=== PATIENT | male | born 1950 | race Caucasian/White ===

== ENCOUNTER 2017-03-11 07:32 | Inpatient (IN) | payer OTHER, MEDICARE ==
--- NOTE | 2017-03-05 08:53 | HP ---
DATE OF ADMISSION: 03/11/2017 DATE OF DICTATION: 03/04/2017 DATE OF SURGERY: 03/11/2017 REASON FOR ADMISSION: Chronic incarcerated ventral hernia. BRIEF HISTORY: This is a 66-year-old gentleman whose history dates back several months ago when he first developed pain in the region of his upper abdomen. The pain subsequently resolved spontaneously, and he was fine up until a week ago when he had a similar bout of pain. Both events were associated with a mass in his upper abdomen above the umbilicus. The mass was firm and hard. The second event was associated with nausea but no vomiting. Patient now has been seen by his primary care physician, Dr. Singh, and noted to have a chronically incarcerated hernia. Patient denies nausea, vomiting at this time. No change in bowel habits or bowel movements. PAST MEDICAL HISTORY: Patient denies coronary disease, hypertension, and diabetes. Patient has a history of arthritic changes and gout. PAST SURGICAL HISTORY: None. MEDICATIONS: Allopurinol, takes a pill for blood pressure, and something for an enlarged prostate. ALLERGIES: He has no known drug allergies. SOCIAL HISTORY: Patient does not smoke or drink. PHYSICAL EXAMINATION: Abdomen: Soft, nontender, nondistended. He has a midline diastasis from xiphoid to umbilicus. He has a hernia noted in the midline that is not reducible, and the hernia in the midline defects are not appreciated due to its chronically incarcerated nature. IMPRESSION/PLAN: Chronically incarcerated ventral hernia. This is a 66-year-old gentleman. He has had 2 bouts of what sounds like acute incarceration of his chronically incarcerated ventral hernia, and, therefore, I would recommend a repair at this time. We have discussed the pros and cons of an open versus laparoscopic approach versus robotic approach. At this time, I think he is best approached in an open fashion with mesh. At the time of surgery, depending on the defect size and the amount of frayed tissue, he may possibly require a component separation as well to allow placement of this large piece of mesh in the retrorectus space. The indications, alternatives, and complications of the procedure are discussed. All questions answered. I will plan to obtain written consent the day of surgery. Dale GRECO [id number] cc: Roberto Carlos Singh MD
[2017-03-08 19:16] VITALS: BMI 29.8
[2017-03-11] MEDS ORDERED: ceFAZolin SODIUM 1 GM VIAL ONE ×2 (07:55→09:23)
[2017-03-11] MEDS ORDERED: PROPOFOL 20 ML ONE (08:15)
[2017-03-11] MEDS ORDERED: LIDOCAINE HCL 2% 100 MG/5 ML DISP.SYRIN ONE (08:15)
[2017-03-11] MEDS ORDERED: SUCCINYLCHOLINE CHLORIDE 200 MG/10 ML VIAL ONE (08:15)
[2017-03-11] MEDS ORDERED: fentaNYL CITRATE 250 MCG/5 ML VIAL ONE (08:15)
[2017-03-11] MEDS ORDERED: DEXAMETHASONE SOD PHOSPHATE 4 MG/1 ML VIAL ONE ×2 (08:15→10:33)
[2017-03-11] MEDS ORDERED: ROCURONIUM BROMIDE 50 MG/5 ML VIAL ONE ×2 (08:16→09:35)
[2017-03-11] MEDS ORDERED: MIDAZOLAM HCL 2 MG/2 ML SINGLE DOSE VIAL ONE (08:16)
[2017-03-11] MEDS ORDERED: ceFAZolin SODIUM 1 GM VIAL IVPB ONE ×2 (08:20→09:20)
[2017-03-11] MEDS ORDERED: DEXAMETHASONE SOD PHOSPHATE 4 MG/1 ML VIAL IVPUSH ONE (10:33)
[2017-03-11] MEDS ORDERED: BUPIVACAINE HCL/PF 0.5% (5MG/ML) 10 ML VIAL IJ ONE (10:33)
[2017-03-11] MEDS ORDERED: NEOSTIGMINE METHYLSULFATE 0.5 MG/ML - 10 ML MDV ONE (10:35)
[2017-03-11] MEDS ORDERED: GLYCOPYRROLATE 0.2 MG/1 ML VIAL ONE (10:35)
[2017-03-11] MEDS ORDERED: ACETAMINOPHEN 325 MG TABLET (FP) PO PRN (10:50)
[2017-03-11] MEDS ORDERED: ONDANSETRON 4 MG/2 ML VIAL IVPUSH PRN (10:50)
[2017-03-11] MEDS ORDERED: oxyCODONE HCL 5 MG TABLET PO PRN (10:50)
[2017-03-11] MEDS ORDERED: morphine CARPU-JECT 4 MG/1 ML DISP.SYRIN IVPB PRN (10:50)
[2017-03-11] MEDS ORDERED: IBUPROFEN 800 MG/8 ML IJ IVPB PRN (10:54)
[2017-03-11] MEDS ORDERED: D5-1/2NS+20 MEQ KCL - 20 MEQ/1,000 ML INFUS.BAG IV SCH (11:00)
[2017-03-11] MEDS ORDERED: LACTATED RINGERS SOLUTION 1,000 ML IV SCH (13:30)
--- NOTE | 2017-03-11 13:46 | OP ---
DATE OF OPERATION: 03/11/2017 PREOPERATIVE DIAGNOSIS: A chronically incarcerated complex ventral hernia. POSTOPERATIVE DIAGNOSIS: A chronically incarcerated complex ventral hernia. PROCEDURE: Open repair of chronically incarcerated ventral hernia with mesh, bilateral component separation, rectus sheath and transversus abdominis block. SURGEON: Wilbert Ortiz MD INSPECTOR ELEVATORS: Dayo Peterson DO ANESTHESIA: Roscoe Snow MD (general). ESTIMATED BLOOD LOSS: Minimal. SPECIMEN: None. INDICATIONS/PROCEDURE: This is a 66-year-old gentleman with a known chronically incarcerated ventral hernia. He is now having more discomfort in the area and with 2 symptomatic bouts that landed him in the hospital. He now wishes to have this repaired. Patient was identified and appropriately positioned on the operating room table. After placement of general anesthesia, the abdomen was prepped and draped in the usual sterile fashion with ChloraPrep. A midline incision was made deep in the subcutaneous tissue. The hernia was identified, dissected free from the subcutaneous tissue down to the level of the fascia. The fascia was then circumferentially scribed. The fascia around the defect was markedly frayed for approximately 2 cm in all directions. Given the size of the defect and bad tissue, this gentleman clearly had over a 30 sq cm area of bad tissue that could not be repaired primarily or with mesh without a component separation. The sac opened through the midline. The rectus sheath on the patients right identified, divided, and the posterior rectus space identified and entered, and the blunt dissection was performed going out laterally to the patients right side. The perforating vessels were identified. At this point, the transversus was from the junction of the oblique and rectus sharply. This was done approximately 4-5 inches above and below the actual defect. The myofascial separation was done sharply throughout this length and allowed the transversus to be mobilized medially. Once this was accomplished on the patients right side, a similar approach on the left side was then used. The posterior rectus sheath on the left side was identified, scored, and this space was insufflated and developed laterally to the junction of the perforating vessels, just medial to the perforating vessels. The fascia at the transversus was divided sharply and from rectus as well as the obliques. The myofascial separation continued 4-5 inches above and below the defect. The operative field was now examined, noted to be hemostatic. The transversus and peritoneum were then reapproximated in the midline with a running locking 3-0 Vicryl suture. This space was then subsequently irrigated. The retrorectus space was hemostatic. A large 20 x 16 JAEL Bio was used for the operative repair along with a 15 x 15 piece of ProGrip. The two pieces of mesh were sewn together. The ProGrip was placed on the rectus side to help anchor the JAEL Bio. The mesh was then placed into the retrorectus space, fanned out laterally in all directions to cover the defect, and the mesh itself was anchored with interrupted AbsorbaTack sutures. The subcutaneous space and mesh were then subsequently irrigated and noted to be hemostatic. A transversus abdominis block was then given approximately 10 mL on both sides containing 0.25% Marcaine in 4 mg of Decadron. That same solution was then used and injected into the rectus sheath in a similar fashion on both sides for the rectus sheath block. The midline fascia was now reapproximated with 0 PDS suture with the sutures placed at a 4-to-1 ratio. The subcutaneous space was irrigated, and the midline closed with silvia. The mesh used was two pieces, one JAEL Bio 20 x 16, ProGrip 15 x 15. The anchoring system was the AbsorbaTack. The patient will stay approximately two midnights at this time unless things change in the morning. At the conclusion of the case, sponge and instrument counts were correct. ATTESTATION: Brief operative note handwritten on preprinted form. [facility] will be queried prior to giving any narcotics and it will be done electronically. . Dale GRECO [id number] cc: Roberto Carlos Singh MD
[2017-03-11] MEDS ORDERED: PT OWN MED DRAWER 7, Y5N ONE (14:46)
[2017-03-11] MEDS: HYDROmorphone HCL CARPU-JECT 1 MG/1 ML DISP.SYRIN IVPB PRN (14:54)
[2017-03-12] MEDS: HYDROmorphone HCL CARPU-JECT 1 MG/1 ML DISP.SYRIN IVPB PRN (01:35)
[2017-03-12 06:24] VITALS: PULSE 84
[2017-03-12] MEDS ORDERED: PT OWN MED DRAWER 7, Y5N ONE (09:24)
[2017-03-12] MEDS ORDERED: ALLOPURINOL 100 MG TABLET (FP) PO SCH (10:00)
[2017-03-12] MEDS ORDERED: FINASTERIDE 5 MG TABLET (FP) PO SCH (10:00)
[2017-03-12] MEDS ORDERED: PANTOPRAZOLE SODIUM 40 MG VIAL IVPUSH SCH (10:00)
[2017-03-12] MEDS ORDERED: amLODIPine BESYLATE 10 MG TABLET (FP) PO SCH (10:00)
[2017-03-12] MEDS ORDERED: ENOXAPARIN NA (PORCINE) 40 MG/0.4 ML DISP.SYRIN SQ SCH (10:00)
[2017-03-12 10:42] VITALS: BP 159/84; TEMP 97.6
--- NOTE | 2017-03-13 08:49 | DS ---
DATE OF ADMISSION: 03/11/2017 DATE OF DISCHARGE: 03/12/2017 ADMITTING DIAGNOSIS: Ventral hernia. BRIEF HISTORY: This is a 66-year-old male who was admitted to [facility] on March 11 for surgical management of a ventral hernia. This was repaired with mesh utilizing component separation. Please reference Dr. Wilbert Ortiz's operative report for further details. He is being discharged home today, March 12, tolerating a liquid diet, voiding, and ambulating. At the time of his discharge, his abdomen is soft and nontender, and his incision is clean. He will go home with a new prescription for Percocet, which he will take as needed for pain. He is okay to shower. He is okay to walk. He will not lift anything more than 20 pounds. He will avoid driving. He will likely require 2 weeks off from work. He will resume his home medications of allopurinol, Norvasc, finasteride. He will follow with Dr. Ortiz in approximately 2 weeks' time to evaluate for staple removal. DO JESS COLIN/[id number]
== END 2017-03-12 13:54 | disposition home or self-care (01) | DRG 355 ==
LOC: JASUSAT 07:32 → JSAMEDAYSX 10:50 → J8W 13:39
PROVIDERS: ADMIT Surgery; ATTEND Surgery
PROC: 0WUF0JZ Supplement Abdominal Wall with Synthetic Substitute, Open Approach (ICD-10-PCS; principal; 2017-03-11 09:00)
DX: K43.6 Other and unspecified ventral hernia with obstruction, without gangrene (principal)
CPT/HCPCS: 94760